=== PATIENT | female | born 1980 | race African-American/Black ===

== ENCOUNTER 2017-06-06 01:36 | Emergency (ER) | payer SELFPAY ==
[~2017-06-06] VITALS: Ht 162.6 cm; Wt 90.0 kg
[2017-06-06] MEDS ORDERED: DIPHENHYDRAMINE 50MG/ML VIAL IM STA (01:57)
[2017-06-06] MEDS ORDERED: SODIUM CHLORIDE 0.9% 1,000 ML IV ONE (01:57)
[2017-06-06] MEDS ORDERED: LORAZEPAM 2MG/ML CPJ IM ONE (02:00)
[2017-06-06] MEDS ORDERED: HALOPERIDOL LACTATE 5MG/ML VIAL IM ONE (02:00)
[2017-06-06] MEDS ORDERED: LORAZEPAM 2MG/ML CPJ IV ONE (03:15)
[2017-06-06 04:12] LABS: CLARITY URINE CLEAR (CLEAR); COLOR URINE YELLOW (YELLOW); GLUCOSE URINE NEGATIVE (NEGATIVE); KETONES URINE NEGATIVE (NEGATIVE); LEUKOCYTE ESTERASE URINE NEGATIVE (NEGATIVE); NITRITE URINE NEGATIVE (NEGATIVE); OCCULT BLOOD URINE 1+ (NEGATIVE); PH URINE 5.5 (4.5-8.0); PROTEIN URINE NEGATIVE (NEGATIVE); SPECIFIC GRAVITY URINE 1.006 (1.005-1.030); UROBILINOGEN URINE 0.2 E.U./dL (0.2-1.0)
[2017-06-06 04:16] LABS: BASOPHILS % 0.7 % (0.0-2.0); EOSINOPHILS % 0.6 % (0.0-5.0); HEMATOCRIT. 30.7 % (36.0-48.0); HEMOGLOBIN. 9.1 g/dL (12.0-16.0); LYMPHOCYTES % 22.5 % (20.0-50.0); MEAN CORPUSCULAR HEMOGLOBIN 21.1 pg (28.0-32.0); MEAN CORPUSCULAR VOLUME 71.5 fL (81.0-99.0); MEAN PLATELET VOLUME 6.8 fl (7.4-10.4); MONOCYTES % 5.5 % (2.0-8.0); NEUTROPHILS % 70.7 % (40.0-76.0); PLATELET 463 x1000/uL (130-400); RED BLOOD CELL COUNT 4.29 mill/uL (4.2-5.4); RED CELL DISTRIBUTION WIDTH 20.1 % (11.6-14.6)
[2017-06-06 04:21] LABS: PARTIAL THROMBOPLASTIN TIME 26.5 sec (24.0-34.0); PROTHROMBIN TIME 10.2 sec
[2017-06-06 04:32] LABS: HCG SCREEN NEGATIVE
[2017-06-06 04:34] LABS: CARBON DIOXIDE 22 mEq/L (21-32); CHLORIDE 110 mEq/L (98-107); ETHANOL BLOOD 261 mg/dL
[2017-06-06 04:45] LABS: *AMPHETAMINES SCREEN URINE NEGATIVE (NEGATIVE); *BARBITURATES SCREEN URINE NEGATIVE (NEGATIVE); *BENZODIAZEPINES SCREEN URINE NEGATIVE (NEGATIVE); CANNABINOID URINE SCREEN NEGATIVE (NEGATIVE); METHADONE URINE SCREEN NEGATIVE (NEGATIVE); OPIATES URINE SCREEN NEGATIVE (NEGATIVE); PHENCYCLIDINE URINE SCREEN NEGATIVE (NEGATIVE)
[2017-06-06 04:46] LABS: *COCAINE SCREEN URINE PRESUMTIVE POSITIVE (NEGATIVE)
[2017-06-06] MEDS ORDERED: POTASSIUM BICARB/CIT ACID 25 MEQ TABLET.EFF PO NR (05:15)
[2017-06-06 17:29] VITALS: BP 132/76
== END 2017-06-06 19:27 | disposition home or self-care (01) ==
LOC: ER 01:36
DX: F14.10 Cocaine abuse, uncomplicated (principal); R41.0 Disorientation, unspecified; I16.0 Hypertensive urgency
CPT/HCPCS: 36415; 70450; 71010; 72125; 80053; 80305; 80307; 80329; 81001; 84703; 85025; 85610; 85730; 96361; 96372; 96374; 99285; G0482; J1200; J1630; J2060; J7030; Z7610

== ENCOUNTER 2018-04-30 04:31 | Emergency (ER) | payer SELFPAY ==
[~2018-04-30] VITALS: Ht 180.3 cm; Wt 84.0 kg
[2018-04-30] MEDS ORDERED: DIPHENHYDRAMINE 25MG CAPSULE PO ONE (07:00)
[2018-04-30] MEDS ORDERED: PERMETHRIN 5% CREAM 60GM TOP ONE (07:00)
[2018-04-30 20:15] VITALS: BP 126/64
== END 2018-05-01 02:09 | disposition home or self-care (01) ==
LOC: ER 04:31
DX: R21 Rash and other nonspecific skin eruption (principal); F17.200 Nicotine dependence, unspecified, uncomplicated
CPT/HCPCS: 99282; Z7610; Q0163

== ENCOUNTER 2018-05-03 06:02 | Emergency (ER) | payer MEDICARE ==
[~2018-05-03] VITALS: Ht 180.3 cm; Wt 83.0 kg
[2018-05-03 06:09] VITALS: BP 155/88
[2018-05-03] MEDS ORDERED: PERMETHRIN 5% CREAM 60GM TOP ONE (11:45)
== END 2018-05-03 13:06 | disposition home or self-care (01) ==
LOC: ER 06:02
DX: B86 Scabies (principal); R03.0 Elevated blood-pressure reading, without diagnosis of hypertension; Z59.0 Homelessness
CPT/HCPCS: 99283

== ENCOUNTER 2018-05-08 04:16 | Emergency (ER) | payer MEDICARE ==
[~2018-05-08] VITALS: Ht 180.3 cm; Wt 84.0 kg
[2018-05-08] MEDS ORDERED: KETOROLAC 60MG/2ML VIAL IM STA (07:44)
[2018-05-08 10:38] LABS: HCG SCREEN NEGATIVE
[2018-05-08 12:00] VITALS: BP 122/78
== END 2018-05-08 12:48 | disposition home or self-care (01) ==
LOC: ER 04:16
DX: M25.511 Pain in right shoulder (principal); Z88.5 Allergy status to narcotic agent; Z88.6 Allergy status to analgesic agent; Z91.040 Latex allergy status
CPT/HCPCS: 73030; 84703; 99285; J1885

== ENCOUNTER 2018-05-28 05:58 | Emergency (ER) | payer MEDICARE ==
[~2018-05-28] VITALS: Ht 180.3 cm; Wt 82.0 kg
[2018-05-28 08:47] LABS: CLARITY URINE CLEAR (CLEAR); COLOR URINE YELLOW (YELLOW); KETONES URINE NEGATIVE (NEGATIVE); LEUKOCYTE ESTERASE URINE NEGATIVE (NEGATIVE); NITRITE URINE NEGATIVE (NEGATIVE); OCCULT BLOOD URINE TRACE (NEGATIVE); PH URINE 7.5 (4.5-8.0); PROTEIN URINE NEGATIVE (NEGATIVE); SPECIFIC GRAVITY URINE 1.011 (1.005-1.030)
[2018-05-28 09:12] LABS: *AMPHETAMINES SCREEN URINE NEGATIVE (NEGATIVE); *BARBITURATES SCREEN URINE NEGATIVE (NEGATIVE); *BENZODIAZEPINES SCREEN URINE NEGATIVE (NEGATIVE)
[2018-05-28 09:13] LABS: CANNABINOID URINE SCREEN NEGATIVE (NEGATIVE); METHADONE URINE SCREEN NEGATIVE (NEGATIVE); OPIATES URINE SCREEN NEGATIVE (NEGATIVE); PHENCYCLIDINE URINE SCREEN NEGATIVE (NEGATIVE)
[2018-05-28 09:19] LABS: *COCAINE SCREEN URINE PRESUMTIVE POSITIVE (NEGATIVE)
[2018-05-28] MEDS ORDERED: IBUPROFEN 600MG TABLET PO STA (09:30)
[2018-05-28 09:39] VITALS: BP 161/85
[2018-05-28] MEDS ORDERED: ACETAMINOPHEN 500MG TABLET PO NR (11:00)
== END 2018-05-28 11:56 | disposition home or self-care (01) ==
LOC: ER 05:58
DX: M54.5 Low back pain (principal); F14.10 Cocaine abuse, uncomplicated; L29.9 Pruritus, unspecified; Z88.6 Allergy status to analgesic agent; Z91.040 Latex allergy status
CPT/HCPCS: 72100; 80305; 81003; 81025; 99285

== ENCOUNTER 2018-06-01 07:39 | Emergency (ER) | payer MEDICARE ==
[~2018-06-01] VITALS: Ht 167.6 cm; Wt 70.0 kg
[2018-06-01] MEDS ORDERED: HALOPERIDOL LACTATE 5MG/ML VIAL IM STA (07:43)
[2018-06-01] MEDS ORDERED: LORAZEPAM 2MG/ML CPJ IM STA (07:43)
[2018-06-01] MEDS ORDERED: LORAZEPAM 2MG/ML CPJ IM ONE (08:45)
[2018-06-01] MEDS ORDERED: HALOPERIDOL LACTATE 5MG/ML VIAL IM ONE (08:45)
[2018-06-01 09:34] LABS: CLARITY URINE CLEAR (CLEAR); COLOR URINE YELLOW (YELLOW); KETONES URINE NEGATIVE (NEGATIVE); LEUKOCYTE ESTERASE URINE NEGATIVE (NEGATIVE); NITRITE URINE NEGATIVE (NEGATIVE); OCCULT BLOOD URINE 3+ (NEGATIVE); PROTEIN URINE TRACE (NEGATIVE); SPECIFIC GRAVITY URINE 1.019 (1.005-1.030); UROBILINOGEN URINE 0.2 E.U./dL (0.2-1.0)
[2018-06-01 10:17] LABS: *AMPHETAMINES SCREEN URINE NEGATIVE (NEGATIVE); *BARBITURATES SCREEN URINE NEGATIVE (NEGATIVE); *BENZODIAZEPINES SCREEN URINE NEGATIVE (NEGATIVE)
[2018-06-01 10:18] LABS: CANNABINOID URINE SCREEN NEGATIVE (NEGATIVE); METHADONE URINE SCREEN NEGATIVE (NEGATIVE); OPIATES URINE SCREEN NEGATIVE (NEGATIVE); PHENCYCLIDINE URINE SCREEN NEGATIVE (NEGATIVE)
[2018-06-01 10:20] LABS: *COCAINE SCREEN URINE PRESUMTIVE POSITIVE (NEGATIVE)
[2018-06-01 13:27] LABS: HEMATOCRIT. 27.3 % (36.0-48.0); HEMOGLOBIN. 7.9 g/dL (12.0-16.0); MEAN CORPUSCULAR HEMOGLOBIN 18.5 pg (28.0-32.0); MEAN CORPUSCULAR VOLUME 64.2 fL (81.0-99.0); MEAN PLATELET VOLUME 8.5 fl (7.4-10.4); PLATELET 182 x1000/uL (130-400); RED BLOOD CELL COUNT 4.25 mill/uL (4.2-5.4); RED CELL DISTRIBUTION WIDTH 18.7 % (11.6-14.6)
[2018-06-01 13:31] LABS: CHLORIDE 108 mEq/L (98-107)
[2018-06-01 13:35] LABS: ETHANOL BLOOD < 10 mg/dL
[2018-06-01 14:06] LABS: PLATELET ESTIMATE NORMAL
[2018-06-02 12:10] VITALS: BP 135/81
== END 2018-06-02 12:22 | disposition home or self-care (01) ==
LOC: ER 09:08
DX: F14.10 Cocaine abuse, uncomplicated (principal); F29 Unspecified psychosis not due to a substance or known physiological condition; Z88.6 Allergy status to analgesic agent; Z91.040 Latex allergy status
CPT/HCPCS: 36415; 80053; 80305; 80307; 80329; 81003; 85025; 96372; 99284; G0482; J1630; J2060

== ENCOUNTER 2018-06-17 04:24 | Emergency (ER) | payer MEDICARE ==
[~2018-06-17] VITALS: Ht 180.3 cm; Wt 84.0 kg
[2018-06-17] MEDS ORDERED: IBUPROFEN 200MG TABLET PO ONE (06:15)
[2018-06-17] MEDS ORDERED: IBUPROFEN 400MG TABLET PO NR (07:15)
[2018-06-17 09:12] VITALS: BP 152/80
== END 2018-06-17 09:19 | disposition home or self-care (01) ==
LOC: ER 05:19
DX: M25.561 Pain in right knee (principal); G89.29 Other chronic pain; R03.0 Elevated blood-pressure reading, without diagnosis of hypertension; F17.210 Nicotine dependence, cigarettes, uncomplicated
CPT/HCPCS: 73562; 81025; 99284

== ENCOUNTER 2018-11-19 05:56 | Emergency (ER) | payer MEDICARE ==
[~2018-11-19] VITALS: Ht 177.8 cm; Wt 82.0 kg
[2018-11-19] MEDS ORDERED: ACETAMINOPHEN 325MG TABLET PO ONE (10:30)
[2018-11-19 11:00] LABS: *AMPHETAMINES SCREEN URINE NEGATIVE (NEGATIVE); *BARBITURATES SCREEN URINE NEGATIVE (NEGATIVE); *BENZODIAZEPINES SCREEN URINE NEGATIVE (NEGATIVE)
[2018-11-19 11:01] LABS: CANNABINOID URINE SCREEN NEGATIVE (NEGATIVE); METHADONE URINE SCREEN NEGATIVE (NEGATIVE); OPIATES URINE SCREEN NEGATIVE (NEGATIVE); PHENCYCLIDINE URINE SCREEN NEGATIVE (NEGATIVE)
[2018-11-19 11:16] LABS: *COCAINE SCREEN URINE PRESUMTIVE POSITIVE (NEGATIVE)
[2018-11-19 14:30] VITALS: BP 148/89
== END 2018-11-19 14:38 | disposition home or self-care (01) ==
LOC: ER 05:56
DX: R42 Dizziness and giddiness (principal); M19.90 Unspecified osteoarthritis, unspecified site; F17.200 Nicotine dependence, unspecified, uncomplicated; Z91.040 Latex allergy status; Y08.89XA Assault by other specified means, initial encounter; Y93.89 Activity, other specified; Y92.89 Other specified places as the place of occurrence of the external cause; Y99.8 Other external cause status
CPT/HCPCS: 80305; 81025; 99284

== ENCOUNTER 2018-11-24 06:13 | Emergency (ER) | payer MEDICARE ==
[~2018-11-24] VITALS: Ht 177.8 cm; Wt 84.0 kg
[2018-11-24] MEDS ORDERED: FAMOTIDINE 20MG TABLET PO ONE (08:15)
[2018-11-24] MEDS ORDERED: DIPHENHYDRAMINE 25MG CAPSULE PO ONE (08:15)
[2018-11-24] MEDS ORDERED: DEXAMETHASONE 10 MG/ML VIAL IM ONE (08:15)
[2018-11-24] MEDS ORDERED: PREDNISONE 20MG TABLET PO ONE (08:30)
[2018-11-24 13:21] VITALS: BP 179/90
== END 2018-11-24 13:21 | disposition home or self-care (01) ==
LOC: ER 06:13
DX: T78.40XA Allergy, unspecified, initial encounter (principal); X58.XXXA Exposure to other specified factors, initial encounter; Z91.040 Latex allergy status
CPT/HCPCS: 99284; J1100; J7512; Q0163

== ENCOUNTER 2019-01-22 23:52 | Emergency (ER) | payer MEDICARE ==
[~2019-01-22] VITALS: Ht 177.8 cm; Wt 84.0 kg
[2019-01-23 00:50] VITALS: BP 191/94
== END 2019-01-23 00:36 | disposition left against medical advice (07) ==
LOC: ER 23:52
DX: M79.89 Other specified soft tissue disorders (principal); Z53.21 Procedure and treatment not carried out due to patient leaving prior to being seen by health care provider

== ENCOUNTER 2019-01-23 05:31 | Inpatient (IN) | payer MEDICARE ==
[~2019-01-23] VITALS: Ht 172.7 cm; Wt 79.4 kg
[2019-01-23] MEDS ORDERED: HYDROCODONE/ACETAMINOPHEN 5/325MG TABLET PO ONE (08:00)
[2019-01-23 08:30] LABS: HEMATOCRIT. 25.8 % (36.0-48.0); HEMOGLOBIN. 7.4 g/dL (12.0-16.0); MEAN CORPUSCULAR HEMOGLOBIN 17.7 pg (28.0-32.0); MEAN CORPUSCULAR VOLUME 61.7 fL (81.0-99.0); MEAN PLATELET VOLUME 8.3 fl (7.4-10.4); PLATELET 194 x1000/uL (130-400); RED BLOOD CELL COUNT 4.18 mill/uL (4.2-5.4); RED CELL DISTRIBUTION WIDTH 19.3 % (11.6-14.6)
[2019-01-23 08:32] LABS: CHLORIDE 108 mEq/L (98-107)
[2019-01-23 08:36] LABS: CLARITY URINE CLEAR (CLEAR); COLOR URINE YELLOW (YELLOW); KETONES URINE NEGATIVE (NEGATIVE); LEUKOCYTE ESTERASE URINE NEGATIVE (NEGATIVE); NITRITE URINE NEGATIVE (NEGATIVE); OCCULT BLOOD URINE NEGATIVE (NEGATIVE); PROTEIN URINE NEGATIVE (NEGATIVE); SPECIFIC GRAVITY URINE 1.012 (1.005-1.030); UROBILINOGEN URINE 0.2 E.U./dL (0.2-1.0)
[2019-01-23 09:07] LABS: ATYPICAL LYMPHOCYTES 2
[2019-01-23 09:08] LABS: PLATELET ESTIMATE NORMAL
[2019-01-23 16:00] VITALS: BP 155/89
[2019-01-23 16:42] VITALS: BP 155/89
[2019-01-23] MEDS ORDERED: ZOLPIDEM TARTRATE 5MG TABLET PO PRN (16:45)
[2019-01-23] MEDS ORDERED: CLONIDINE 0.1MG TABLET PO PRN (16:45)
[2019-01-23] MEDS ORDERED: ONDANSETRON HCL 4MG/2ML INJ IV PRN (16:45)
[2019-01-23] MEDS ORDERED: FUROSEMIDE 40MG/4ML VIAL IVP SCH (17:30)
[2019-01-23 20:00] VITALS: BP 156/88
[2019-01-23] MEDS: AMLODIPINE 5MG TABLET PO SCH (21:42)
[2019-01-23] MEDS: HYDROCODONE/ACETAMINOPHEN 5/325MG TABLET PO PRN (22:00)
[2019-01-24] VITALS: BP 145/80
[2019-01-24 04:00] VITALS: BP 166/92
[2019-01-24] MEDS: HYDROCODONE/ACETAMINOPHEN 5/325MG TABLET PO PRN (06:02)
[2019-01-24 06:46] LABS: HEMATOCRIT. 25.8 % (36.0-48.0); HEMOGLOBIN. 7.5 g/dL (12.0-16.0); MEAN CORPUSCULAR VOLUME 62.1 fL (81.0-99.0); MEAN PLATELET VOLUME 8.6 fl (7.4-10.4); PLATELET 187 x1000/uL (130-400); RED BLOOD CELL COUNT 4.15 mill/uL (4.2-5.4); RED CELL DISTRIBUTION WIDTH 19.2 % (11.6-14.6)
[2019-01-24 06:58] LABS: CHLORIDE 106 mEq/L (98-107)
[2019-01-24 07:18] LABS: LDL CHOLESTEROL 61 mg/dL (5-100); TOTAL IRON BINDING CAPACITY 439 ug/dL (250-450)
[2019-01-24 07:20] LABS: HDL CHOLESTEROL 41 mg/dL (40-59)
[2019-01-24] MEDS ORDERED: ENOXAPARIN 40MG/0.4ML SYR SUBCUT SCH (07:30)
[2019-01-24] MEDS ORDERED: IPRATROPIUM/ALBUTEROL 0.5-3(2.5)MG/3ML NEB INH PRN (07:30)
[2019-01-24] MEDS ORDERED: ONDANSETRON HCL 4MG/2ML INJ IV PRN (07:30)
[2019-01-24] MEDS ORDERED: HYDROMORPHONE HCL/PF 2MG/ML CPJ IV PRN (07:30)
[2019-01-24] MEDS ORDERED: NA PHOS,M-B/NA PHOS,DI-BA ENEMA 118ML PR PRN (07:30)
[2019-01-24] MEDS ORDERED: MAGNESIUM/ALUMINUM HYDROXIDE/SIMETHICONE 30ML UDC PO PRN (07:30)
[2019-01-24] MEDS ORDERED: CLONIDINE 0.1MG TABLET PO PRN (07:30)
[2019-01-24] MEDS ORDERED: DOCUSATE SODIUM 100MG CAPSULE PO PRN (07:30)
[2019-01-24] MEDS ORDERED: LORAZEPAM 2MG/ML CPJ IV PRN (07:30)
[2019-01-24] MEDS ORDERED: ACETAMINOPHEN 325MG TABLET PO PRN (07:30)
[2019-01-24] MEDS ORDERED: HYDROCODONE/ACETAMINOPHEN 5/325MG TABLET PO PRN (07:30)
[2019-01-24 08:00] VITALS: BP 124/68
[2019-01-24] MEDS: FUROSEMIDE 40MG/4ML VIAL IV SCH ×2 (09:00→09:16)
[2019-01-24] MEDS: AMLODIPINE 5MG TABLET PO SCH ×3 (09:00→21:00)
[2019-01-24] MEDS: ASPIRIN 81MG EC TABLET PO SCH (09:16)
[2019-01-24 12:00] VITALS: BP 152/95
[2019-01-24 13:08] LABS: PLATELET ESTIMATE NORMAL
[2019-01-24 13:12] LABS: *AMPHETAMINES SCREEN URINE NEGATIVE (NEGATIVE); *BARBITURATES SCREEN URINE NEGATIVE (NEGATIVE)
[2019-01-24 13:13] LABS: *BENZODIAZEPINES SCREEN URINE NEGATIVE (NEGATIVE); METHADONE URINE SCREEN NEGATIVE (NEGATIVE); OPIATES URINE SCREEN NEGATIVE (NEGATIVE)
[2019-01-24 13:14] LABS: CANNABINOID URINE SCREEN NEGATIVE (NEGATIVE); PHENCYCLIDINE URINE SCREEN NEGATIVE (NEGATIVE)
[2019-01-24 13:16] LABS: *COCAINE SCREEN URINE PRESUMTIVE POSITIVE (NEGATIVE)
[2019-01-24] MEDS: FUROSEMIDE 40MG TABLET PO SCH (13:59)
[2019-01-24 16:00] VITALS: BP 129/69
[2019-01-24 20:00] VITALS: BP 144/76
[2019-01-24] MEDS: ACETAMINOPHEN 325MG TABLET PO PRN ×2 (20:49→22:23)
[2019-01-25] VITALS: BP 133/74
[2019-01-25] MEDS: ACETAMINOPHEN 325MG TABLET PO PRN (01:19)
[2019-01-25 06:00] VITALS: BP 133/88
[2019-01-25 08:00] VITALS: BP 131/79
[2019-01-25] MEDS: FUROSEMIDE 40MG TABLET PO SCH (11:04)
[2019-01-25] MEDS: AMLODIPINE 5MG TABLET PO SCH (11:04)
[2019-01-25] MEDS: ASPIRIN 81MG EC TABLET PO SCH (11:04)
[2019-01-25 11:12] LABS: HEMATOCRIT. 29.8 % (36.0-48.0); HEMOGLOBIN. 8.6 g/dL (12.0-16.0); MEAN CORPUSCULAR HEMOGLOBIN 17.8 pg (28.0-32.0); MEAN CORPUSCULAR VOLUME 61.7 fL (81.0-99.0); MEAN PLATELET VOLUME 8.4 fl (7.4-10.4); PLATELET 209 x1000/uL (130-400); RED BLOOD CELL COUNT 4.83 mill/uL (4.2-5.4)
[2019-01-25 11:19] LABS: CHLORIDE 104 mEq/L (98-107)
[2019-01-25 11:26] LABS: LDL CHOLESTEROL 78 mg/dL (5-100)
[2019-01-25 11:28] LABS: T4 FREE 1.18 ng/dL (0.76-1.46)
[2019-01-25 11:32] LABS: HDL CHOLESTEROL 41 mg/dL (40-59)
[2019-01-25 12:00] VITALS: BP 133/86
[2019-01-25 12:09] LABS: PLATELET ESTIMATE NORMAL
== END 2019-01-25 13:45 | disposition left against medical advice (07) | DRG 812 ==
LOC: ER 05:31 → ENRESERV 13:25 → 5WST 13:53 → EDBEDREQ 14:07
PROVIDERS: ADMIT Internal Medicine; ATTEND Internal Medicine
DX: D50.9 Iron deficiency anemia, unspecified (principal); I11.0 Hypertensive heart disease with heart failure; F17.210 Nicotine dependence, cigarettes, uncomplicated; J44.9 Chronic obstructive pulmonary disease, unspecified; M17.0 Bilateral primary osteoarthritis of knee; G89.29 Other chronic pain; Z53.21 Procedure and treatment not carried out due to patient leaving prior to being seen by health care provider; M19.90 Unspecified osteoarthritis, unspecified site; I50.9 Heart failure, unspecified; Z91.040 Latex allergy status
CPT/HCPCS: 36415; 71045; 80048; 80061; 80305; 82728; 83540; 83550; 83880; 84439; 84443; 84484; 86850; 86900; 93005; 93306; 93971; 96374; 99285; J1940

== ENCOUNTER 2019-01-28 23:13 | Emergency (ER) | payer MEDICARE ==
[~2019-01-28] VITALS: Ht 177.8 cm; Wt 75.0 kg
[2019-01-29 04:00] VITALS: BP 141/72
== END 2019-01-29 04:30 | disposition home or self-care (01) ==
LOC: ER 23:13
DX: I82.403 Acute embolism and thrombosis of unspecified deep veins of lower extremity, bilateral (principal); M19.90 Unspecified osteoarthritis, unspecified site; Z91.040 Latex allergy status
CPT/HCPCS: 99283

== ENCOUNTER 2019-01-29 04:26 | Emergency (ER) | payer MEDICARE ==
[~2019-01-29] VITALS: Ht 177.8 cm; Wt 84.0 kg
[2019-01-29 05:33] VITALS: BP 123/86
== END 2019-01-29 11:21 | disposition left against medical advice (07) ==
LOC: ER 04:26
DX: Z53.21 Procedure and treatment not carried out due to patient leaving prior to being seen by health care provider (principal); F17.200 Nicotine dependence, unspecified, uncomplicated; Z91.040 Latex allergy status
CPT/HCPCS: 93005

== ENCOUNTER 2019-02-15 08:16 | Emergency (ER) | payer MEDICARE | END 2019-02-15 09:14 | disposition home or self-care (01) | LOC: ER 08:16 | DX: R60.9 Edema, unspecified (principal); Z53.21 Procedure and treatment not carried out due to patient leaving prior to being seen by health care provider | CPT/HCPCS: 99281 ==

== ENCOUNTER 2019-02-15 10:28 | Emergency (ER) | payer MEDICARE ==
[~2019-02-15] VITALS: Ht 177.8 cm; Wt 84.0 kg
[2019-02-15] MEDS ORDERED: FUROSEMIDE 40MG/4ML VIAL IV ONE (11:00)
[2019-02-15] MEDS ORDERED: ASPIRIN 81MG TABLET PO ONE (11:00)
[2019-02-15 11:37] LABS: CHLORIDE 106 mEq/L (98-107)
[2019-02-15 11:38] LABS: PROTHROMBIN TIME 9.9 sec (9.6-11.0)
[2019-02-15 11:39] LABS: HEMATOCRIT. 26.6 % (36.0-48.0); HEMOGLOBIN. 7.6 g/dL (12.0-16.0); MEAN CORPUSCULAR HEMOGLOBIN 17.5 pg (28.0-32.0); MEAN CORPUSCULAR VOLUME 61.4 fL (81.0-99.0); PLATELET 496 x1000/uL (130-400); RED BLOOD CELL COUNT 4.33 mill/uL (4.2-5.4); RED CELL DISTRIBUTION WIDTH 18.9 % (11.6-14.6)
[2019-02-15 12:12] LABS: NUCLEATED RED BLOOD CELLS 1 /100 WBC
[2019-02-15 12:13] LABS: PLATELET ESTIMATE INCREASED
[2019-02-15 13:05] LABS: HCG SCREEN NEGATIVE
[2019-02-15 13:55] VITALS: BP 156/85
== END 2019-02-15 14:09 | disposition home or self-care (01) ==
LOC: ER 10:28
DX: R60.0 Localized edema (principal); Z91.040 Latex allergy status
CPT/HCPCS: 36415; 71045; 80053; 81025; 83880; 84484; 84703; 85025; 85610; 93005; 93970; 96374; 99284; J1940

== ENCOUNTER 2019-05-19 23:04 | Emergency (ER) | payer SELFPAY ==
[~2019-05-19] VITALS: Ht 177.8 cm; Wt 86.0 kg
[2019-05-20] MEDS ORDERED: ACETAMINOPHEN 325MG TABLET PO ONE (03:45)
[2019-05-20] MEDS ORDERED: IBUPROFEN 800MG TABLET PO ONE (09:00)
[2019-05-20 12:50] VITALS: BP 127/83
== END 2019-05-20 20:09 | disposition home or self-care (01) ==
LOC: ER 23:04
DX: G89.29 Other chronic pain (principal); M17.0 Bilateral primary osteoarthritis of knee; D64.9 Anemia, unspecified; F17.200 Nicotine dependence, unspecified, uncomplicated; Z91.040 Latex allergy status; Z59.0 Homelessness
CPT/HCPCS: 73562; 93970; 99284

== ENCOUNTER 2019-05-23 21:11 | Emergency (ER) | payer SELFPAY ==
[~2019-05-23] VITALS: Ht 170.2 cm; Wt 79.0 kg
[2019-05-23] MEDS ORDERED: HYDROCODONE/ACETAMINOPHEN 5/325MG TABLET PO STA (22:27)
[2019-05-23 23:43] LABS: HEMATOCRIT. 28.2 % (36.0-48.0); MEAN CORPUSCULAR HEMOGLOBIN 17.8 pg (28.0-32.0); MEAN CORPUSCULAR VOLUME 62.4 fL (81.0-99.0); MEAN PLATELET VOLUME 8.5 fl (7.4-10.4); PLATELET 128 x1000/uL (130-400); RED BLOOD CELL COUNT 4.51 mill/uL (4.2-5.4); RED CELL DISTRIBUTION WIDTH 20.5 % (11.6-14.6)
[2019-05-24 00:13] LABS: CHLORIDE 106 mEq/L (98-107)
[2019-05-24 01:21] LABS: ATYPICAL LYMPHOCYTES 3
[2019-05-24 01:23] LABS: PLATELET ESTIMATE SLIGHTLY DECREASED
[2019-05-24] MEDS ORDERED: SODIUM CHLORIDE 0.9% 1,000 ML IV ONE (01:33)
[2019-05-24] MEDS ORDERED: CEFTRIAXONE 1 G PREMIX 50 ML IV ONE (01:45)
[2019-05-24] MEDS ORDERED: HYDROCODONE/ACETAMINOPHEN 5/325MG TABLET PO ONE (02:30)
[2019-05-24 07:04] LABS: CLARITY URINE CLEAR (CLEAR); COLOR URINE YELLOW (YELLOW); KETONES URINE NEGATIVE (NEGATIVE); LEUKOCYTE ESTERASE URINE NEGATIVE (NEGATIVE); NITRITE URINE NEGATIVE (NEGATIVE); OCCULT BLOOD URINE NEGATIVE (NEGATIVE); PH URINE 6.5 (4.5-8.0); PROTEIN URINE NEGATIVE (NEGATIVE); SPECIFIC GRAVITY URINE 1.019 (1.005-1.030); UROBILINOGEN URINE 0.2 E.U./dL (0.2-1.0)
[2019-05-24 10:06] VITALS: BP 126/57
== END 2019-05-24 10:08 | disposition home or self-care (01) ==
LOC: ER 23:50
DX: M79.604 Pain in right leg (principal); M79.89 Other specified soft tissue disorders; R10.31 Right lower quadrant pain; R10.32 Left lower quadrant pain; M19.90 Unspecified osteoarthritis, unspecified site; D64.9 Anemia, unspecified; Z91.040 Latex allergy status
CPT/HCPCS: 36415; 80053; 81003; 83880; 84484; 85025; 87040; 93005; 93970; 96365; 99284; J0696; J7030

== ENCOUNTER 2021-01-19 13:36 | Emergency (ER) | payer SELFPAY ==
[~2021-01-19] VITALS: Ht 177.8 cm; Wt 88.0 kg
[2021-01-19] MEDS ORDERED: IBUPROFEN 600MG TABLET PO ONE (14:15)
[2021-01-19 14:42] VITALS: BP 132/84
[2021-01-19] MEDS ORDERED: IBUP-2029 MT (14:45)
== END 2021-01-19 15:50 | disposition home or self-care (01) ==
LOC: ER 14:00
DX: M25.532 Pain in left wrist (principal); M25.531 Pain in right wrist; D64.9 Anemia, unspecified; M19.90 Unspecified osteoarthritis, unspecified site; Z91.040 Latex allergy status; Z79.899 Other long term (current) drug therapy; Z98.890 Other specified postprocedural states
CPT/HCPCS: 73110; 99283